=== PATIENT | female | born 1970 | race Caucasian/White ===

== ENCOUNTER 2023-09-28 20:06 | Emergency (ER) | payer MEDICAID ==
[~2023-09-28] VITALS: Ht 165.1 cm; Wt 66.0 kg
[2023-09-28 20:17] VITALS: O2SAT 98
[2023-09-28] MEDS: KETOROLAC 30MG/ML VIAL IM STA (23:05)
[2023-09-29] MEDS: LIDOCAINE HCL 1% 20ML VIAL INFIL ONE (00:45)
[2023-09-29 02:20] VITALS: BP 132/82; PULSE 82; RESP 18; TEMP 98.2
== END 2023-09-29 02:28 | disposition home or self-care (01) ==
LOC: ER 20:15
DX: S01.81XA Laceration without foreign body of other part of head, initial encounter (principal); I10 Essential (primary) hypertension; W18.39XA Other fall on same level, initial encounter; Y93.89 Activity, other specified; Y92.89 Other specified places as the place of occurrence of the external cause; Y99.8 Other external cause status
CPT/HCPCS: 71045; 72170; 73560; 73590; 73620; 70450; 12011; 96372; 99285; J1885; J3490; Z7610 ×3